=== PATIENT | female | born 1995 | race Caucasian/White ===

== ENCOUNTER 2021-03-07 23:22 | Emergency (ER) | payer OTHER ==
[~2021-03-07] VITALS: Ht 162.6 cm; Wt 56.7 kg
[2021-03-07] MEDS ORDERED: EFFEXOR XR150 MG PO (23:32)
[2021-03-07] MEDS ORDERED: PROPRANOLOL 20M20 M1 PO (23:32)
[2021-03-08] MEDS ORDERED: VALTREX1000 MG PO (00:31)
[2021-03-08] MEDS ORDERED: GENTAK5 ML TOP (00:33)
[2021-03-08 02:04] VITALS: BP 130/72
== END 2021-03-08 02:05 | disposition home or self-care (01) ==
LOC: M.ERS 23:22
DX: B02.9 Zoster without complications (principal); F41.9 Anxiety disorder, unspecified; Z79.899 Other long term (current) drug therapy